=== PATIENT | female | born 1955 | race Caucasian/White ===

== ENCOUNTER 2016-09-22 15:01 | Emergency (ER) | payer BC ==
[~2016-09-22] VITALS: Ht 154.9 cm; Wt 80.0 kg
[2016-09-22 15:03] VITALS: BP 151/71; PULSE 88; RESP 18; TEMP 98.4; O2SAT 94
--- NOTE | 2016-09-22 15:59 | PD ---
HPI Chief Complaint: Injury Time Seen by Provider: 15:46 Travel History International Travel<30 days: No Contact w/Intl Traveler<30days: No Traveled to known affect area: No History of Present Illness HPI Patient is a 61-year-old female who presents emergency Department with complaint of left wrist and right foot pain. Patient had a mechanical fall, landing on outstretched hand. She states she has pain over the left dorsal wrist, worse with any movement. Pain is mild, no noted deformity. She also complains of pain in the right great toe that extends up into the foot. 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 She has been able ambulate without any difficulty. [facility] Past Medical History Arthritis: Yes Social History Tobacco Use: No Allergies-Medications (Allergen,Severity, Reaction): Coded Allergies: Penicillin (Verified Allergy, Severe, 09/22/16) Review of Systems Except as stated in HPI: all other systems reviewed are Neg Physical Exam Narrative GENERAL: Well-appearing elderly female in no acute distress SKIN: Focused skin assessment warm/dry. HEAD: Normocephalic. EYES: No scleral icterus. No injection or drainage. CARDIOVASCULAR: Regular rate and rhythm. RESPIRATORY: No accessory muscle use. MUSCULOSKELETAL: No obvious deformities. Tenderness to palpation over the left carpal row, no snuffbox tenderness. Patient is able to fully flex and extend the wrist albeit with pain. Right great toe without any obvious deformity, swelling the patient does complain with pain with range of motion of the toe. There is swelling of the proximal mid foot and right ankle, chronic per patient without tenderness to palpation NEUROLOGICAL: Awake and alert. Normal speech. PSYCHIATRIC: Appropriate mood and affect; insight and judgment normal. Data Data Last Documented VS Vital Signs Date Time Temp Pulse Resp B/P Pulse Ox O2 Delivery O2 Flow Rate FiO2 09/22/16 15:03 98.4 88 18 151/71 94 Room Air Orders Wrist, Complete ([id number]) (09/22/16 ) Foot, Complete (Xoa0umg) (09/22/16 ) Naproxen (Naprosyn) (09/22/16 16:00) ^ Gee Bandage (09/22/16 16:14) MDM Medical Decision Making Medical Screen Exam Complete: Yes Emergency Medical Condition: Yes Medical Record Reviewed: Yes Differential Diagnosis 61-year-old female here with left wrist and right great toe pain after mechanical fall. Differential includes wrist sprain, wrist fracture, less likely carpal dislocation, right great toe contusion, right great toe fracture. Narrative Course X-rays of the left wrist and right foot were obtained that by my read shows significant arthritic changes of the right foot but no acute abnormalities. Patient given naproxen and discharged home. Diagnosis Primary Impression: Left wrist sprain Qualified Code: S63.502A - Left wrist sprain, initial encounter Additional Impressions: Pain of right great toe Fall Qualified Code: W19.XXXA - Fall, initial encounter Referrals: Primary Care Physician as needed Additional Instructions: Tylenol, ibuprofen, Aleve as needed for pain. Ice the affected area 20 minutes at a time 3-4 times daily. Med/Other Pt SpecificInfo: No Change to Meds Disposition: 01 DISCHARGE HOME Condition: Stable Tori Wu MD Sep 22, 2016 15:59
[2016-09-22] MEDS ORDERED: NAPROXEN 500 MG TAB PO ONE (16:00)
--- NOTE | 2016-09-22 16:23 | RADRPT ---
EXAM DATE/TIME: 09/22/2016 15:27 [facility] COMPARISON: No previous studies available for comparison. INDICATIONS : Left wrist pain, fall. MEDICAL HISTORY : None. SURGICAL HISTORY : None. ENCOUNTER: Initial ACUITY: 1 day PAIN SCORE: 10/10 LOCATION: Left wrist, carpals FINDINGS: Three view examination of the left wrist demonstrates no soft tissue swelling, dislocation, or fractu re. The carpal bones are in normal alignment. The joint spaces are maintained. There is cystic jessica nge at the lunate. Bony mineralization is normal. CONCLUSION: No acute disease. Calvin Saldana MD on September 22, 2016 at 16:20 Board Certified Radiologist. This report was verified electronically.
--- NOTE | 2016-09-22 17:03 | RADRPT ---
EXAM DATE/TIME: 09/22/2016 15:32 [facility] COMPARISON: No previous studies available for comparison. INDICATIONS : Right foot pain, fall. MEDICAL HISTORY : None. SURGICAL HISTORY : Right foot surgery 20 years ago ENCOUNTER: Initial ACUITY: 1 day PAIN SCORE: 5/10 LOCATION: Right lateral foot FINDINGS: There is fusion at the hind foot between the talus, navicular bone, calcaneus and cuboid. There is n arrowing and possibly some degree of fusion between the cuboid and the lateral cuneiform bone. An ac [place] fracture is not seen. There is some hypertrophic change at the dorsal hind foot at the distal as pect of the navicular bone. There is some soft tissue swelling seen over this region at the dorsal m id and hind foot. No foreign body is seen. CONCLUSION: 1. 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 2. Chronic hypertrophic change at the dorsal hind foot and mid foot especially at the distal dorsal n avicular bone. 3. Soft tissue swelling over the dorsal mid foot. Calvin Saldana MD on September 22, 2016 at 16:21 Board Certified Radiologist. This report was verified electronically.
== END 2016-09-22 16:50 | disposition home or self-care (01) ==
LOC: EDSEX → NEPD 15:01
DX: S63.502A Unspecified sprain of left wrist, initial encounter (principal); M79.674 Pain in right toe(s); W19.XXXA Unspecified fall, initial encounter
CPT/HCPCS: 73110; 73630; 99284